=== PATIENT | female | born 1955 | race American Indian/Alaskan Native ===

== ENCOUNTER 2017-08-01 11:37 | Outpatient (CLI) | payer MEDICARE ==
[2017-08-01 12:28] LABS: ISTAT Base Excess 4; ISTAT DEVICE 0; ISTAT HCO3 28.7; ISTAT PCO2 42.9 (35-45); ISTAT PH 7.433 (7.35-7.45); ISTAT PO2 70 (80-105); ISTAT SO2 94; ISTAT TCO2 30
== END 2017-08-01 11:38 | disposition home or self-care (01) ==
LOC: LAB 11:37
PROVIDERS: ATTEND Internal Medicine
DX: J45.20 Mild intermittent asthma, uncomplicated (principal); R09.02 Hypoxemia
CPT/HCPCS: 36600; 82803

== ENCOUNTER 2017-08-22 17:06 | Emergency (ER) | payer MEDICARE ==
[2017-08-22 18:55] LABS: Basophils % (Auto) 0.4 % (0.0-1.8); Eosinophils % (Auto) 0.1 % (0.0-4.3); Hematocrit 38.2 % (30.3-42.9); Hemoglobin 11.9 gm/dl (10.1-14.3); Mean Corpuscular HGB Conc 31 % (30-34); Mean Corpuscular Hemoglobin 26 pg (28-32); Mean Corpuscular Volume 84 fl (79-97); Platelet Count 269 K/mm3 (140-440); Red Blood Count 4.54 M/mm3 (3.65-5.03); White Blood Count 10.6 K/mm3 (4.5-11.0)
[2017-08-22 19:19] LABS: Bacteria,Urine 1+ /HPF (Negative); Bilirubin,Urine NEG (Negative); Blood,Urine NEG (Negative); Ketones,Urine NEG (Negative); Leukocyte Esterase,Urine NEG (Negative); Mucus,Urine FEW /HPF; Nitrite,Urine NEG (Negative); Protein,Urine <15 mg/dL mg/dL (Negative); Urobilinogen,Urine < 2.0 mg/dL (<2.0)
[2017-08-22 19:35] LABS: Anion Gap 20 mmol/L; BUN/Creatinine Ratio 35; Blood Urea Nitrogen 21 mg/dL (7-17); Calcium 9.6 mg/dL (8.4-10.2); Carbon Dioxide 27 mmol/L (22-30); Glucose 199 mg/dL (65-100); Sodium 141 mmol/L (137-145)
[2017-08-22 22:40] VITALS: BP 234/111
== END 2017-08-22 22:45 | disposition left against medical advice (07) ==
LOC: ED 17:06
DX: M79.89 Other specified soft tissue disorders (principal); Z53.21 Procedure and treatment not carried out due to patient leaving prior to being seen by health care provider
CPT/HCPCS: 36415; 80048; 81001; 82805; 82962; 85025